=== PATIENT | male | born 1940 | race Caucasian/White ===

== ENCOUNTER 2017-11-21 12:28 | Observation (INO) | payer MEDICARE ==
[~2017-11-21] VITALS: Ht 180.3 cm; Wt 77.1 kg
--- NOTE | ~2017-11-21 | HEMODYNAMI ---
PATIENT:CHAD BALDWIN MEDICAL RECORD: [id number] : 36 [id number] ADMISSION DATE: 11/21/17 Generatedon:11/23/201710:38 Patient name: CHAD BALDWIN Patient #: [id number] SSN: DO B: 1940 Date of study: 11/23/2017 Page: Of Hemodynamic Procedure Report Patient Data Patient Demographics Procedure consent was obtained First Name: CHAD Gender: Male Last Name: DENNY : 1940 Middle Initial: ARVIN Age: 77 year(s) Patient #: [id number] Race: Additional ID: [id number] Contact details Address: [address] [address] State: [place] City: [place] Zip code: [address] Past Medical History History of disease Date Diagnosis Comments CHF Peripheral vascular disease Allergies Allergen Reaction Date Comments Reported Other allergy 03/12/2016 ACTO, LISINOPRIL, NIASPAN Other allergy 11/23/2017 Lisinopril, niacin Admission Admission Data Admission Date: 11/21/2017 Admission Time: 14:56 Room #: D.2116 Lab Results Lab Result Date: 11/23/2017 Lab Result Time: 0:00 CBC Name Units Result Min Max Hemoglobin g/dl 11.36 *-(----)-- 13.5 17.5 Procedure Procedure Types Cath Procedure Diagnostic Procedure C C w/Coronaries Procedure Description Procedure Date Procedure Date: 11/23/2017 Procedure Start Time: 10:28 Procedure End Time: 10:36 Procedure Staff Name Function Jos Costa MD Performing Physician Sandy Smith RT Monitor Jacquie Sky RT Scrub Mouna Dc RN Nurse Procedure Data Cath Procedure Fluoroscopy Diagnostic fluoroscopy Total fluoroscopy Time: 1 time: 1 min min Diagnostic fluoroscopy Total fluoroscopy dose: 434 dose: 434 mGy mGy Contrast Material Contrast Material Type Amount (ml) Isovue 300 51 Entry Location Entry Primary Successful Side Size Upsize Upsize Entry Closure Succes sful Closure Location (Fr) 1 (Fr) 2 (Fr) Remarks Device Remarks Femoral Right 5 Fr Exoseal artery Estimated blood loss: 5 ml Diagnostic catheters Device Type Used For End Catheter Placement MULTIPACK Pigtail 5 Fr LV Angiography catheter MULTIPACK JL 4.0 5Fr Left Coronary catheter Angiography MULTIPACK 3DRC 5Fr Right Coronary catheter Angiography Procedure Complications No complications Procedure Medications Medication Administration Route Dosage Oxygen NC 2 l/min Lidocaine 2% added to field 20 Heparin Flush Bag added to field 2 bags (1000units/500ml NS) 0.9% NaCl I.V. 100 ml/hr Versed I.V. 1 mg Fentanyl I.V. 50 mcg Hemodynamics Rest HGB: 11.36 (g/dl) Heart Rate: 81 (bpm) Pressure Samples Time Site Value (mmHg) Purpose Heart Use Rate(bpm) 10:30 LV 3/-38,-53 Snapshot 80 Snapshots Pre Cath Intra NCS Post Cath Vital Signs Time Heart Resp SPO2 etCO2 NIBP (mmHg) Rhythm Pain Sedation Rate (ipm) (%) (mmHg) Status Level (bpm) 10:15:56 95 24 100 0 137/76(107) NSR 0 (11) 10(A) , No pain 10:20:10 76 21 99 0 133/77(117) NSR 0 (11) 10(A) , No pain 10:24:26 69 18 99 0 132/71(104) NSR 0 (11) 10(A) , No pain 10:28:42 72 12 96 0 125/69(113) NSR 0 (11) 9(A) , No pain 10:32:50 71 15 96 0 116/72(103) NSR 0 (11) 10(A) , No pain Medications Time Medication Route Dose Verified Delivered Reason Notes Effec tiveness by by 10:18:34 Oxygen NC 2 Jos Buffie used for l/min Igor Dc RN procedure 10:18:41 Lidocaine 2% added 20ml Jos Buffie used for to vial Igor Dc manager sales training field 10:18:46 Heparin Flush added 2 Jos Buffie used for Bag to bags Igor Dc manager sales training (1000units/500ml field NS) 10:18:54 0.9% NaCl I.V. 100 Jos Buffie Per ml/hr Igor Dc RN physician 10:22:48 Versed I.V. 1 mg Jos Freire for Igor Dc RN sedation 10:22:53 Fentanyl I.V. 50 Jos Freire for [facility] Igor Dc RN sedation Procedure Log Time Note 10:00:06 Sandy Smith RT(R) sent for patient. Start room use. 10:06:18 Time tracking: Regular hours (M-F 7:00 - 5:00) 10:06:22 Plan of Care:Hemodynamics will remain stable., Cardiac rhythm will remain stable., Comfort level will be maintained., Respiratory function will remain adequate., Patient/ family verbilizes understanding of procedure., Procedure tolerated without complication., Recovers from procedure without complications.. 10:06:35 Patient received from Med II to CCL 2 Alert and oriented. Tansferred to table in Supine position. 10:07:40 Warm blankets applied, and joseph hugger turned on for patient comfort. 10:07:40 Correct patient and procedure confirmed by team. 10:07:43 Signed procedure consent form obtained from patient. 10:08:03 H&P Date Dictated: 11/21/2017 Within 30 days and on chart.. 10:08:05 Family in waiting room. 10:08:07 Patient NPO since Midnight. 10:08:39 Patient allergic to Other allergyLisinopril, niacin 10:08:44 Is the patient allergic to Iodine/contrast media? No. 10:08:48 Was the patient premedicated? Yes 10:08:51 Patient diabetic? Yes. 10:08:53 If diabetic: On Metformin? Yes 10:08:59 Snore? Yes 10:09:02 Sleep apnea? No 10:09:08 Airway obstruction? Yes SOB 10:09:48 Dentures? No ? 10:09:57 Patient pain scale 0/10 SOB. 10:10:04 IV patent on arrival in right forearm with 0.9% NaCl at O. 10:10:33 Lab Result : Hemoglobin 11.36 g/dl 10:10:40 Lab results completed and on chart. 10:10:44 Right groin area was prepped with chlora-prep and draped in sterile fashion 10:10:45 Alarms reviewed by R. N. 10:10:47 Sharps counted by scrub and verified by R.N. 10:10:48 Physician paged 10:14:47 ECG and BP/O2 sat monitors applied to patient. 10:14:48 Vital chart was started 10:14:49 Baseline sample Acquired. 10:15:07 Rhythm: atrial fibrillation 10:15:10 Full Disclosure recording started 10:15:17 Is patient on blood thinner?Yes 10:15:34 plavix 11/21 10:15:37 Previous problem with sedation/anesthesia? No ? 10:15:41 Deviated septum? No 10:15:42 Opens mouth fully? Yes 10:15:43 Sticks out tongue? Yes 10:15:47 Pre procedure: right dorsailis pedis pulse 1+ Palpable, but thready & weak; easily obliterated 10:15:48 Pre procedure: left dorsailis pedis pulse 1+ Palpable, but thready & weak; easily obliterated 10:18:34 Oxygen 2 l/min NC was administered by Mouna Dc RN; used for procedure; 10:18:41 Lidocaine 2% 20ml vial added to field was administered by Mouna Dc RN; used for procedure; 10:18:46 Heparin Flush Bag (1000units/500ml NS) 2 bags added to field was administered by Mouna Dc RN; used for procedure; 10:18:54 0.9% NaCl 100 ml/hr I.V. was administered by Mouna Dc RN; Per physician; 10:20:04 Physician arrived 10:20:04 --------ALL STOP TIME OUT------ 10:20:04 Final Timeout: patient, procedure, and site verified with staff and physician. All members of the team are in agreement. 10:20:07 Right groin site verified by team. 10:20:09 Physical assessment completed. ASA score P 2 - A patient with mild systemic disease as per Jos Costa MD. 10:20:12 Sedation plan: IV Moderate Sedation Medication:Versed, Fentanyl 10:22:48 Versed 1 mg I.V. was administered by Mouna Dc RN; for sedation; 10::53 Fentanyl 50 mcg I.V. was administered by Mouna Dc RN; for sedation; 10:28:53 Procedure started. 10:28:59 Local anesthetic to right femoral artery with Lidocaine 2% by Jos Costa MD.INITIAL ACCESS ONLY 10:29:38 A 5 Fr sheath was inserted into the Right Femoral artery 10:30:28 Use device set Femoral Dx 10:30:29 ACIST Syringe (38293) opened to sterile field. 10:30:30 Bag Decanter (2002S) opened to sterile field. 10:30:30 Medline Cath Pack ([id number]) opened to sterile field. 10:30:31 SHEATH 5FR [place] (QHG271) opened to sterile field. 10:30:33 DIAGNOSTIC WIRE .035 260cm J wire (872564) opened to sterile field. 10:30:34 ACIST Hand Control (48570) opened to sterile field. 10:30:34 ACIST Manifold (90871) opened to sterile field. 10:30:35 DIAGNOSTIC Multipack 5Fr catheter set ([id number]) opened to sterile field. 10:30:36 Tegaderm 4 x 4 (1626W) opened to sterile field. 10:30:43 A MULTIPACK Pigtail 5 Fr catheter was advanced over the wire and used for LV Angiography. 10:30:51 LV hemodynamics recorded. 10:30:52 LV gram done using MONTAÑO 10:30:55 Injector settings: Ml/sec: 5, Volume: 15, 10:31:00 EF : 30 % 10:31:10 Catheter removed. 10:31:14 A MULTIPACK JL 4.0 5Fr catheter was advanced over the wire and used for Left Coronary Angiography. 10:31:35 LCA angiography performed. 10:31:37 Injector settings: Ml/sec: 3, Volume: 6, 10:32:55 Catheter removed. 10:33:03 A MULTIPACK 3DRC 5Fr catheter was advanced over the wire and used for Right Coronary Angiography. 10:33:33 LV angiography performed. 10:33:36 Injector settings: Ml/sec: 3, Volume: 6, 10:33:58 Catheter removed. 10:34:22 EXOSEAL 5Fr (EX500) opened to sterile field. 10:34:29 Sheath removed intact; hemostasis achieved with Exoseal to the Right Femoral artery. 10:34:31 Procedure ended.(Physican Out) 10:34:41 Fluoroscopy time 01.00 minutes. 10:34:48 Fluoroscopy dose: 434 mGy 10:34:48 Flurop Dose total: 434 10:34:51 Contrast amount:Isovue 300 51ml. 10:34:52 Sharps counted by scrub and verified by R.N. 10:34:53 Insertion/operative site no bleeding no hematoma. 10:34:56 Post-op/insertion site Right Femoral artery dressed using a 4 x 4 and Tegaderm. 10:34:59 Post right femoral artery:stable 10:35:00 Post Procedure Pulses reassessed and unchanged 10:35:03 Post procedure rhythm: unchanged. 10:35:05 Estimated blood loss: 5 ml 10:35:06 Post procedure instruction explained to patient.Patient verbalizes understanding. 10:35:07 Patient needs reinforcement of post procedure teaching. 10:35:14 Procedure and supply charges have been captured, reviewed, submitted and are correct. 10:35:18 Procedure Complication : No complications 10:35:20 Vital chart was stopped 10:35:20 See physician's report for complete and final results. 10:35:26 Report given to Pre/Post Procedure Room. 10:36:00 Patient transfered to Pre/Post Procedure Room with Stretcher. 10:36:14 Procedure ended. 10:36:14 Full Disclosure recording stopped 10:36:19 End room use (Document Last) Device Usage Item Name Manufacture Quantity Catalog Hospital Part Current Minimal L ot# / Number Charge Number Stock Stock Serial# Code ACIST Acist 1 13297 577376 423907 647758 20 Syringe Medical (66184) Systems Inc Bag Microtek 1 981696 03681 800059 5 Decanter Medical Inc. () Medline Cardinal 1 [id number] 232111 80510 725302 5 Cath Pack Health ([id number]) SHEATH 5FR Terumo 1 RCV777 705888 584576 493309 40 [place] (PXW529) DIAGNOSTIC St Konstantin 1 443705 670630 155017 038449 30 WIRE .035 260cm J wire (506430) ACIST Hand Acist 1 54906 236287 272528 326345 5 Control Medical (97799) Systems Inc ACIST Acist 1 89218 640631 488339 932686 5 Manifold Medical (55008) Systems Inc DIAGNOSTIC Cardinal 1 [id number] 137295 33564 356676 30 Multipack Health 5Fr catheter set (ZF9914) Tegaderm 4 3M 1 1626W 288914 130362 825859 5 x 4 (1626W) MULTIPACK Cardinal 1 853480 5 Pigtail 5 Health Fr catheter MULTIPACK Cardinal 1 851085 5 JL 4.0 5Fr Health catheter MULTIPACK Cardinal 1 937943 5 3DRC 5Fr Health catheter EXOSEAL 5Fr Cardinal 1 EX500 850048 177656 914945 10 (EX500) Health Signature Audit [place] Stage Time Signature Unsigned Intra-Procedure 11/23/2017 Sandy Smith 10:38:07 AM RT(R) Signatures Monitor : Sandy Smith RT Signature : Date : Time : [facility] [address] [place] [address]
--- NOTE | ~2017-11-21 | DS ---
PATIENT:CHAD COOL :36 MEDICAL RECORD: [id number] DISCHARGE SUMMARY ADMISSION DATE: 11/21/17 DISCHARGE DATE: 11/23/17 DISCHARGE DIAGNOSES: 1. Congestive heart failure, chronic systolic dysfunction. 2. Cardiomyopathy. 3. Coronary artery disease. 4. Hypertension. 5. Hyperlipidemia. HOSPITAL COURSE: Mr. Cool presents with shortness of breath, dyspnea on exertion, and chest discomfort. He underwent cardiac catheterization revealing wide patency of his previously placed stents, no disease elsewise. Cardiomyopathy, ejection fraction 35%. He had the addition of Lasix to his medical regimen as well as IV Lasix while in the hospital. His heart failure symptomatology improved. He will follow up with [facility] in 2 weeks. TRANSINT:[id number] Voice Confirmation ID: [id number] DOCUMENT ID: [id number] JOSE MARIA STONE MD at 0956 CC: [id number] DICTATION DATE: 11/23/17 1044 SAND WORKER: 11/23/17 1325 DIS IN 11/23/17 [id number] [place] [address]
--- NOTE | ~2017-11-21 | OP ---
PATIENT NAME: CHAD BADLWIN MEDICAL RECORD: [id number] :36 [facility]ATION:[facility] ADMISSION DATE:11/21/17 SURGEON: JOSE MARIA STONE MD DATE OF OPERATION: 11/23/2017 PROCEDURES: 1. Left heart catheterization. 2. Selective coronary angiography. 3. Left ventriculogram. INDICATION: Shortness of breath, dyspnea on exertion, angina, and coronary artery disease. DESCRIPTION OF PROCEDURE: After informed consent was obtained and after a detailed description of risks, benefits as well as alternative therapies, the patient elected to proceed with angiogram and heart catheterization. The right femoral area was prepped and draped in normal sterile fashion. Right femoral artery was cannulated via modified Seldinger technique with placement of 5-Albanian sheath. All catheters exchanged through this sheath. FINDINGS: Left ventriculogram was performed in standard 30-degree [place]O view, reveals global hypokinesis throughout all segments. Overall ejection fraction in the 35% range. SELECTIVE CORONARY ANGIOGRAPHY: 1. Left main is with no significant angiographic disease. 2. Left anterior descending has previously placed stents, these are widely patent with no significant restenosis. No disease elsewise throughout the LAD or its branches. 3. Left circumflex has moderate irregularities, but no flow-limiting stenosis. 4. The right coronary artery has previously placed stents, these are widely patent with no significant restenosis. No disease elsewise. OVERALL IMPRESSION: Cardiomyopathy, but no new coronary artery disease. Center medical management and treatment of cardiomyopathy and congestive heart failure. TRANSINT:[id number] Voice Confirmation ID: [id number] DOCUMENT ID: [id number] JOSE MARIA STONE MD at 0956 CC: [id number] DICTATION DATE: 11/23/17 1043 LOT TECHNICIAN: 11/23/17 1238 DIS IN 11/23/17 [address] [place] [address]
--- NOTE | ~2017-11-21 | HP ---
PATIENT: CHAD COOL MEDICAL RECORD: [id number] ACCOUNT: [id number] [facility] ADMISSION DATE: 11/21/17 HISTORY AND PHYSICAL EXAMINATION DIAGNOSES: 1. Unstable angina. 2. Coronary artery disease. 3. Hypertension. 4. Hyperlipidemia. HISTORY OF PRESENT ILLNESS: Mr. Cool presents with increasing anginal chest discomfort as well as shortness of breath, dyspnea on exertion. These symptoms he has had in the past when he has had hemodynamically significant disease. Last cardiac stent was in June prior to . PHYSICAL EXAMINATION: GENERAL APPEARANCE: Well-nourished, well-developed, appears stated age. Level of distress, comfortable. PSYCHIATRIC: Mental status, alert, normal affect. Orientation, oriented to time, place and person. EYES: Lids and conjunctiva, noninjected. No discharge, no pallor. ENT: Lips, teeth, gums, normal dentition. Oropharynx, no cyanosis, no pallor. NECK: Carotid arteries, bilateral normal upstroke, no bruits, no thrills. JUGULAR VEINS: No jugular venous pressure or distention. CERVICAL LYMPH NODES: Nontender, nonenlarged. THYROID: Not enlarged. Nontender. No nodules. LUNGS: Respiratory effort, unlabored. CHEST: Normal curvature. No thoracic deformity. No chest wall tenderness. Percussion, resonant. Auscultation, clear. No wheezes, no rales, no rhonchi. CARDIOVASCULAR: Precordial exam, nondisplaced. No heaves or pericardial thrills. Rate and rhythm, regular. Heart sounds, normal S1, normal S2. No S3, no gallop, no rub. Systolic murmur, not heard. Diastolic murmur, not heard. EXTREMITIES: No cyanosis, no edema. Peripheral pulses, full and equal in all extremities, except as noted. No bruits appreciated. ABDOMEN: Soft, nondistended. Normal aorta. No bruit. Nontender. No masses. Liver, nontender, no hepatomegaly. Spleen, nontender, no splenomegaly. MUSCULOSKELETAL: No joint tenderness. No joint swelling. No erythema. NEUROLOGICAL: Normal gait, normal strength, normal tone. SKIN: Warm and dry. REVIEW OF SYSTEMS: The patient reports easy bruising but reports no swollen glands. The patient reports no fever, no night sweats, no significant weight gain, no significant weight loss. No significant exercise tolerance. The patient reports no dry eyes, no irritation, no vision change. Patient reports no difficulty hearing and no ear pain. Patient reports no frequent nose bleeds or nose and sinus problems. Patient reports on arm pain on exertion. No shortness of breath while lying down. No history of heart murmur. Patient reports no cough, no wheezing or coughing up blood. Patient reports no abdominal pain, no vomiting. Normal appetite. No diarrhea and not vomiting blood. No nausea and no constipation. Patient reports no incontinence. No difficulty urinating. No hematuria. No increased frequency. Patient reports no muscle aches. No weakness, no arthralgias, no back pain. No swelling of the extremities. Patient reports no abnormal mole, no jaundice, no rashes. Reports no loss of consciousness. No weakness and no numbness. No seizures, dizziness, HISTORY AND PHYSICAL [id number] COOL,CHAD ARVIN or headaches. The patient reports no depression, no sleep disturbance, feeling safe in a relationship and no alcohol abuse. Patient reports on fatigue. Reports no runny nose or sinus pressure. No itching, no hives, and no frequent sneezing. OVERALL IMPRESSION: Unstable anginal symptomatology, most likely has recurrent hemodynamically significant coronary artery disease. We will proceed with coronary angiography. Further care depends upon findings of the angiography. TRANSINT:[id number] Voice Confirmation ID: [id number] DOCUMENT ID: [id number] JOSE MARIA STONE MD at 0956 CC: [id number] DICTATION DATE: 11/22/17 142 RIG MANAGER: 11/22/17 1501 DIS IN 11/23/17 [address] [place] [address]
[~2017-11-21 12:28] MED LIST: ALDACTONE25 MG PO; BAYER CHEWABLE81 MG PO; CITRACAL + D E1 EACH PO; COZAAR25 MG PO; FERROUS SULFAT325 MG PO; GLUCOPHAGE1000 MG PO; JANUVIA100 MG PO; LIPITOR80 MG PO; LOPRESSOR25 MG PO; MEGA MEN; NEXIUM40 MG PO; PLAVIX75 MG PO; [UNRECOGNIZED DRUG - OTHER]
[2017-11-21 13:39] LABS: BASOPHILS 0.2 % (0-2); HEMATOCRIT 33.2 % (42.0-54.0); HEMOGLOBIN 11.3 g/dL (13.5-17.5); IMMATURE GRANULOCYTES 0.4 % (0-5); LYMPHOCYTES 16.2 % (15-50); MCH 31.6 pg (26.0-34.0); MCV 92.7 fL (80.0-100.0); MEAN PLATELET VOLUME 11.2 fL (7.4-10.4); MONOCYTES 6.8 % (2-11); NEUTROPHILS 75.4 % (40-80); PLATELET COUNT 209 10x3/uL (130-400); RBC 3.58 10x6/uL (4.20-6.10); RDW 13.4 % (11.5-14.5); WBC 8.2 10x3/uL (4.8-10.8)
[2017-11-21 13:55] LABS: ALKALINE PHOSPHATASE 50 U/L (46-116); ALT (SGPT) 18 U/L (10-68); BILIRUBIN - TOTAL 0.91 mg/dL (0.2-1.3); CALC OSMOLALITY 266 mosm/kg (275-300); CALCIUM 8.6 mg/dL (8.5-10.1); CARBON DIOXIDE 22.3 mmol/L (21.0-32.0); CHLORIDE - SERUM 96 mmol/L (98-107); CREATININE - SERUM 1.1 mg/dL (0.6-1.3); GLUCOSE 109 mg/dL (74-106); POTASSIUM - SERUM 5.2 mmol/L (3.5-5.1); PROTEIN - SERUM 7.1 g/dL (6.4-8.2); SODIUM 131 mmol/L (136-145); UREA NITROGEN 20 mg/dL (7-18); eGFR NON AFRICAN AMERICAN 68 mL/min (90-120)
[2017-11-21 14:10] LABS: CREATINE KINASE 440 UL (21-232); PRO BNP 15328 pg/mL (0-450)
[2017-11-21 14:13] LABS: CKMB 1.4 U/L (0.0-3.6)
[2017-11-21] MEDS ORDERED: LIPITOR20 MG PO (15:50)
[2017-11-21] MEDS ORDERED: FERROUS SULFAT325 MG PO (15:54)
[2017-11-21 15:55] VITALS: BP 126/57; BMI 24.1
[2017-11-21 19:00] VITALS: BP 116/69
[2017-11-22] VITALS: BP 112/61
[2017-11-22 04:00] VITALS: BP 122/64
[2017-11-22 09:53] VITALS: BP 140/60
[2017-11-22 12:49] VITALS: BP 123/74
[2017-11-22 16:30] VITALS: BP 125/82
[2017-11-22 20:00] VITALS: BP 138/72
[2017-11-23] VITALS: BP 115/70
[2017-11-23 04:00] VITALS: BP 120/52
[2017-11-23 08:30] VITALS: BP 128/71
[2017-11-23] MEDS ORDERED: AUGMENTIN 500-11 TA1 PO (11:37)
[2017-11-23] MEDS ORDERED: LASIX40 MG PO (11:42)
[2017-11-23 13:03] VITALS: Ht 180.3 cm; Wt 77.1 kg
== END 2017-11-23 13:10 | disposition home or self-care (01) ==
LOC: D.ER 12:28 → D.M2 14:56 → D.EDHOLD 14:56 → OBSVTIME 14:56 → D.M2 15:03 → D.CLR 11-23 13:06
PROVIDERS: Family Medicine
DX: I42.9 Cardiomyopathy, unspecified (principal); I11.0 Hypertensive heart disease with heart failure; I50.22 Chronic systolic (congestive) heart failure; I25.10 Atherosclerotic heart disease of native coronary artery without angina pectoris; E78.5 Hyperlipidemia, unspecified

== ENCOUNTER 2017-12-17 14:42 | Inpatient (IN) | payer MEDICARE ==
[~2017-12-17] VITALS: Ht 180.3 cm; Wt 78.0 kg
--- NOTE | ~2017-12-17 | CN ---
PATIENT NAME:CHAD BALDWIN MEDICAL RECORD: [id number] : 36 LOCATION:D. D.2111 ADMIT DATE: 12/18/17 ACCOUNT: [id number] CONSULTING PHYSICIAN: JOSE MARIA STONE MD REFERRING PHYSICIAN: RADHA OLSON MD DATE OF CONSULTATION: 12/18/2017 Cardiology Consultation ADMITTING DIAGNOSES: 1. Congestive heart failure, chronic systolic dysfunction. 2. Cardiomyopathy. 3. Coronary artery disease. 4. Hypertension. 5. Hyperlipidemia. 6. Non-insulin dependent diabetes. HISTORY OF PRESENT ILLNESS: Mr. Baldwin presents with shortness of breath, dyspnea on exertion, and fluid retention. He even has home health, which was given to him IV Lasix. Despite this, he had continued to have fluid retention and increasing weight. He has been brought in here. He has had some diuresis here. He has a cardiomyopathy and he had cardiac catheterization last month revealing patency of all the previously placed stents. Ejection fraction in the 35% range. He is not having any anginal symptomatology. His troponin is normal. His EKG is with no changes. PHYSICAL EXAMINATION: GENERAL APPEARANCE: Well-nourished, well-developed, appears stated age. Level of distress, comfortable. PSYCHIATRIC: Mental status, alert, normal affect. Orientation, oriented to time, place and person. EYES: Lids and conjunctiva, noninjected. No discharge, no pallor. ENT: Lips, teeth, gums, normal dentition. Oropharynx, no cyanosis, no pallor. NECK: Carotid arteries, bilateral normal upstroke, no bruits, no thrills. JUGULAR VEINS: No jugular venous pressure or distention. CERVICAL LYMPH NODES: Nontender, nonenlarged. THYROID: Not enlarged. Nontender. No nodules. LUNGS: Bibasilar crackles. CHEST: Normal curvature. No thoracic deformity. No chest wall tenderness. Percussion, resonant. Auscultation, clear. No wheezes, no rales, no rhonchi. CARDIOVASCULAR: Precordial exam, nondisplaced. No heaves or pericardial thrills. Rate and rhythm, regular. Heart sounds, normal S1, normal S2. No S3, no gallop, no rub. Systolic murmur, not heard. Diastolic murmur, not heard. EXTREMITIES: No cyanosis. Peripheral pulses, full and equal in all extremities, except as noted. No bruits appreciated. He does have +2 lower extremity edema. ABDOMEN: Soft, nondistended. Normal aorta. No bruit. Nontender. No masses. Liver, nontender, no hepatomegaly. Spleen, nontender, no splenomegaly. MUSCULOSKELETAL: No joint tenderness. No joint swelling. No erythema. NEUROLOGICAL: Normal gait, normal strength, normal tone. SKIN: Warm and dry. OVERALL IMPRESSION: Congestive heart failure, chronic systolic dysfunction. At this time, continue Lasix that you have him on. We will add dobutamine continuous drip for 24-48 hours, hopefully this will assist in the diuresis. No CONSULT REPORT [id number] CHAD BALDWIN other cardiac workup treatment is necessary at this time as he has a known cardiomyopathy, no new coronary artery disease. As soon as he is back to baseline from the standpoint of heart failure, the dobutamine drip can be discontinued. He can go home back on his oral Lasix. TRANSINT:[id number] Voice Confirmation ID: [id number] DOCUMENT ID: [id number] JOSE MARIA STONE MD at 1849 CC: [id number] DICTATION DATE: 12/18/17 1336 CHUCKING MACHINE SET UP OPERATOR: 12/18/17 1711 DIS IN 12/22/17 [facility] [address] [place] [address]
[~2017-12-17 14:42] MED LIST changes: +AUGMENTIN 500-11 TA1 PO; +LASIX40 MG PO; +LIPITOR20 MG PO
[2017-12-17 15:28] LABS: BASOPHILS 0.2 % (0-2); EOSINOPHILS 0.6 % (0-7); HEMATOCRIT 33.3 % (42.0-54.0); HEMOGLOBIN 11.8 g/dL (13.5-17.5); IMMATURE GRANULOCYTES 0.6 % (0-5); LYMPHOCYTES 12.7 % (15-50); MCH 31.9 pg (26.0-34.0); MCHC 35.4 g/dL (31.0-37.0); MEAN PLATELET VOLUME 10.9 fL (7.4-10.4); MONOCYTES 9.3 % (2-11); NEUTROPHILS 76.6 % (40-80); PLATELET COUNT 191 10x3/uL (130-400); RDW 13.2 % (11.5-14.5); WBC 10.7 10x3/uL (4.8-10.8)
[2017-12-17 15:57] LABS: ALBUMIN 4.1 g/dL (3.4-5.0); ALKALINE PHOSPHATASE 65 U/L (46-116); ALT (SGPT) 1079 U/L (10-68); BILIRUBIN - TOTAL 1.57 mg/dL (0.2-1.3); CALC OSMOLALITY 251 mosm/kg (275-300); CALCIUM 8.4 mg/dL (8.5-10.1); CARBON DIOXIDE 23.7 mmol/L (21.0-32.0); CHLORIDE - SERUM 86 mmol/L (98-107); CREATININE - SERUM 1.4 mg/dL (0.6-1.3); GLUCOSE 129 mg/dL (74-106); POTASSIUM - SERUM 4.6 mmol/L (3.5-5.1); PROTEIN - SERUM 7.6 g/dL (6.4-8.2); SODIUM 121 mmol/L (136-145); UREA NITROGEN 28 mg/dL (7-18); eGFR NON AFRICAN AMERICAN 52 mL/min (90-120)
[2017-12-17 16:05] LABS: CKMB 1.7 U/L (0.0-3.6); PRO BNP 23564 pg/mL (0-450)
[2017-12-17 16:10] LABS: TROPONIN-I < 0.017 ng/mL (0.000-0.060)
[2017-12-17] MEDS ORDERED: ASPIRIN325 MG PO (19:53)
[2017-12-17 21:23] VITALS: BP 128/79
[2017-12-18] VITALS (7 sets, daily range): BP systolic 109–143; BP diastolic 58–86; Ht 180.3 cm; Wt 78.0 kg
[2017-12-18 05:17] LABS: BASOPHILS 0.2 % (0-2); EOSINOPHILS 0.2 % (0-7); HEMOGLOBIN 10.7 g/dL (13.5-17.5); IMMATURE GRANULOCYTES 0.6 % (0-5); LYMPHOCYTES 12.8 % (15-50); MCH 30.8 pg (26.0-34.0); MCHC 34.5 g/dL (31.0-37.0); MCV 89.3 fL (80.0-100.0); MEAN PLATELET VOLUME 11.1 fL (7.4-10.4); MONOCYTES 10.7 % (2-11); NEUTROPHILS 75.5 % (40-80); RBC 3.47 10x6/uL (4.20-6.10); WBC 8.2 10x3/uL (4.8-10.8)
[2017-12-18 05:23] LABS: PLATELET COUNT 143 10x3/uL (130-400)
[2017-12-18 05:26] LABS: ANION GAP 19.3 mmol/L (8-16); CALCIUM 7.7 mg/dL (8.5-10.1); CARBON DIOXIDE 22.6 mmol/L (21.0-32.0); CREATININE - SERUM 1.4 mg/dL (0.6-1.3)
[2017-12-18 05:32] LABS: POTASSIUM - SERUM 3.9 mmol/L (3.5-5.1)
[2017-12-18 14:17] LABS: % SATURATION 40 % (15-55); IRON 94 ug/dl (35-150); TOTAL IRON BIND CAPACITY 234 ug/dl (260-445); UNSAT IRON BIND CAPACITY 140 ug/dl (150-375)
[2017-12-19 02:57] VITALS: BP 74/67
[2017-12-19 03:27] LABS: BASOPHILS 0.2 % (0-2); EOSINOPHILS 0.3 % (0-7); HEMATOCRIT 28.7 % (42.0-54.0); HEMOGLOBIN 10.2 g/dL (13.5-17.5); IMMATURE GRANULOCYTES 0.6 % (0-5); LYMPHOCYTES 8.8 % (15-50); MCHC 35.5 g/dL (31.0-37.0); MCV 87.2 fL (80.0-100.0); MEAN PLATELET VOLUME 10.8 fL (7.4-10.4); MONOCYTES 6.2 % (2-11); NEUTROPHILS 83.9 % (40-80); PLATELET COUNT 139 10x3/uL (130-400); RBC 3.29 10x6/uL (4.20-6.10); RDW 12.9 % (11.5-14.5); WBC 8.7 10x3/uL (4.8-10.8)
[2017-12-19 03:29] LABS: CALCIUM 7.8 mg/dL (8.5-10.1); CARBON DIOXIDE 23.7 mmol/L (21.0-32.0); CREATININE - SERUM 1.1 mg/dL (0.6-1.3)
[2017-12-19 03:32] LABS: ANION GAP 16.4 mmol/L (8-16); POTASSIUM - SERUM 3.1 mmol/L (3.5-5.1)
[2017-12-19 05:58] VITALS: BP 119/67
[2017-12-19 06:47] LABS: ALBUMIN 3.7 g/dL (3.4-5.0); BILIRUBIN - DIRECT 0.71 mg/dL (0.00-0.30); BILIRUBIN - INDIRECT 0.8 mg/dL (0.00-1.00); BILIRUBIN - TOTAL 1.51 mg/dL (0.2-1.3); PROTEIN - SERUM 6.2 g/dL (6.4-8.2)
[2017-12-19 08:17] LABS: FOLATE (FOLIC ACID) - SERUM >20.0 ng/mL (>3.0)
[2017-12-19 08:43] VITALS: BP 98/74
[2017-12-19 11:58] VITALS: BP 119/65
[2017-12-19 16:44] VITALS: BP 124/67
[2017-12-19 21:57] VITALS: BP 149/60
[2017-12-20 06:17] VITALS: BP 118/50
[2017-12-20 06:32] LABS: BASOPHILS 0.1 % (0-2); HEMATOCRIT 29.4 % (42.0-54.0); HEMOGLOBIN 10.4 g/dL (13.5-17.5); IMMATURE GRANULOCYTES 0.6 % (0-5); LYMPHOCYTES 10.9 % (15-50); MCH 31.1 pg (26.0-34.0); MCHC 35.4 g/dL (31.0-37.0); MEAN PLATELET VOLUME 11.3 fL (7.4-10.4); MONOCYTES 8.4 % (2-11); PLATELET COUNT 159 10x3/uL (130-400); RBC 3.34 10x6/uL (4.20-6.10); WBC 8.4 10x3/uL (4.8-10.8)
[2017-12-20 06:40] LABS: CALCIUM 7.5 mg/dL (8.5-10.1); CARBON DIOXIDE 27.3 mmol/L (21.0-32.0); CREATININE - SERUM 0.9 mg/dL (0.6-1.3); GLUCOSE 98 mg/dL (74-106); eGFR NON AFRICAN AMERICAN 86 mL/min (90-120)
[2017-12-20 06:43] LABS: CALC OSMOLALITY 238 mosm/kg (275-300); POTASSIUM - SERUM 3.7 mmol/L (3.5-5.1); UREA NITROGEN 16 mg/dL (7-18)
[2017-12-20 06:44] LABS: CHLORIDE - SERUM 82 mmol/L (98-107); SODIUM 118 mmol/L (136-145)
[2017-12-20 08:18] VITALS: BP 88/67
[2017-12-20 12:28] VITALS: BP 120/70
[2017-12-20 16:30] VITALS: BP 124/55
[2017-12-20 21:01] VITALS: BP 112/53
[2017-12-21 05:26] LABS: BASOPHILS 0.3 % (0-2); EOSINOPHILS 1.1 % (0-7); HEMATOCRIT 29.6 % (42.0-54.0); HEMOGLOBIN 10.5 g/dL (13.5-17.5); IMMATURE GRANULOCYTES 0.4 % (0-5); LYMPHOCYTES 10.1 % (15-50); MCH 31.3 pg (26.0-34.0); MCHC 35.5 g/dL (31.0-37.0); MCV 88.4 fL (80.0-100.0); MEAN PLATELET VOLUME 10.5 fL (7.4-10.4); MONOCYTES 10.1 % (2-11); PLATELET COUNT 160 10x3/uL (130-400); RBC 3.35 10x6/uL (4.20-6.10); RDW 13.3 % (11.5-14.5); WBC 7.3 10x3/uL (4.8-10.8)
[2017-12-21 05:50] LABS: CALC OSMOLALITY 250 mosm/kg (275-300); CALCIUM 7.9 mg/dL (8.5-10.1); GLUCOSE 109 mg/dL (74-106); POTASSIUM - SERUM 3.4 mmol/L (3.5-5.1); SODIUM 124 mmol/L (136-145); UREA NITROGEN 12 mg/dL (7-18); eGFR NON AFRICAN AMERICAN 76 mL/min (90-120)
[2017-12-21 05:57] LABS: CHLORIDE - SERUM 85 mmol/L (98-107)
[2017-12-21 06:33] VITALS: BP 81/68
[2017-12-21 09:13] VITALS: BP 115/62
[2017-12-21 12:46] VITALS: BP 108/75
[2017-12-21 14:19] LABS: MAGNESIUM - SERUM 2.3 mg/dL (1.8-2.4); POTASSIUM - SERUM 3.6 mmol/L (3.5-5.1)
[2017-12-21 16:43] VITALS: BP 118/64
[2017-12-21 20:00] VITALS: BP 121/70
[2017-12-22 06:19] LABS: BASOPHILS 0.4 % (0-2); EOSINOPHILS 4.1 % (0-7); HEMATOCRIT 30.5 % (42.0-54.0); HEMOGLOBIN 10.5 g/dL (13.5-17.5); IMMATURE GRANULOCYTES 0.6 % (0-5); LYMPHOCYTES 16.8 % (15-50); MCH 30.8 pg (26.0-34.0); MCHC 34.4 g/dL (31.0-37.0); MCV 89.4 fL (80.0-100.0); MEAN PLATELET VOLUME 10.8 fL (7.4-10.4); MONOCYTES 12.2 % (2-11); NEUTROPHILS 65.9 % (40-80); PLATELET COUNT 169 10x3/uL (130-400); RBC 3.41 10x6/uL (4.20-6.10); RDW 13.7 % (11.5-14.5); WBC 7.1 10x3/uL (4.8-10.8)
[2017-12-22 06:38] LABS: ANION GAP 14.4 mmol/L (8-16); CALCIUM 8.3 mg/dL (8.5-10.1); CARBON DIOXIDE 26.6 mmol/L (21.0-32.0); CREATININE - SERUM 1.1 mg/dL (0.6-1.3)
[2017-12-22 08:33] VITALS: BP 123/60
[2017-12-22 11:35] VITALS: BP 115/72
== END 2017-12-22 11:45 | disposition home health service (06) | DRG 292 ==
LOC: D.ER 14:42 → D.M2 17:13 → D.EDHOLD 17:13 → OBSVTIME 17:13 → D.EDHOLD 17:13 → D.M2 17:36
PROVIDERS: Emergency Medicine; Family Medicine; Internal Medicine Nephrology
DX: I11.0 Hypertensive heart disease with heart failure (principal); N17.9 Acute kidney failure, unspecified; E87.1 Hypo-osmolality and hyponatremia; I50.23 Acute on chronic systolic (congestive) heart failure; I42.9 Cardiomyopathy, unspecified; I25.10 Atherosclerotic heart disease of native coronary artery without angina pectoris; Z95.5 Presence of coronary angioplasty implant and graft; E78.5 Hyperlipidemia, unspecified; E11.51 Type 2 diabetes mellitus with diabetic peripheral angiopathy without gangrene; K76.1 Chronic passive congestion of liver; D64.9 Anemia, unspecified

== ENCOUNTER → 2018-02-11 17:27 | Outpatient (CLI) | payer MEDICARE ==
[2017-12-18 14:01] VITALS: BMI 23.9
[~2018-02-11 17:27] MED LIST changes: +ASPIRIN325 MG PO; +FUROSEMIDE40 MG PO; +K-DUR20 MEQ PO; +SOMA350 MG PO
== END | disposition home or self-care (01) ==
LOC: D.LABREF 17:27
PROVIDERS: Internal Medicine Interventional Cardiology
DX: E78.5 Hyperlipidemia, unspecified (principal); I25.10 Atherosclerotic heart disease of native coronary artery without angina pectoris

== ENCOUNTER 2018-02-24 09:49 | Observation (INO) | payer MEDICARE ==
[~2018-02-24] VITALS: Ht 180.3 cm; Wt 73.4 kg
--- NOTE | ~2018-02-24 | DS ---
PATIENT:CHAD COOL :36 MEDICAL RECORD: [id number] DISCHARGE SUMMARY ADMISSION DATE: 02/24/18 DISCHARGE DATE: 02/26/18 DISCHARGE DIAGNOSES: 1. Congestive heart failure, chronic systolic dysfunction. 2. Cardiomyopathy. 3. Coronary artery disease. 4. Hypertension. 5. Hyperlipidemia. HOSPITAL COURSE: Mr. Cool presents with fluid overload, congestive heart failure symptomatology, underwent therapy with dobutamine as well as Bumex, had an excellent diuresis with resolution of all his symptomatology. Discharged home with no change in the medications as he is already on multiple diuretics. He will follow up with [facility] in 1 month. TRANSINT:[id number] Voice Confirmation ID: [id number] DOCUMENT ID: [id number] JOSE MARIA STONE MD at 1325 CC: [id number] DICTATION DATE: 02/26/18 1137 CLUB STEWARD: 02/26/18 1219 DIS IN 02/26/18 [id number] [place] [address]
[~2018-02-24 09:49] MED LIST changes: -FUROSEMIDE40 MG PO; -K-DUR20 MEQ PO; -SOMA350 MG PO
[2018-02-24] MEDS ORDERED: LIPITOR20 MG PO (10:18)
[2018-02-24] MEDS ORDERED: FERROUS SULFAT325 MG PO (10:19)
[2018-02-24] MEDS ORDERED: LOPRESSOR25 MG PO (10:20)
[2018-02-24 10:32] VITALS: BP 123/79; BMI 23.4
[2018-02-24 11:16] VITALS: BP 123/79
[2018-02-24 11:35] LABS: ANION GAP 12.6 mmol/L (8-16); CALCIUM 9.1 mg/dL (8.5-10.1); CARBON DIOXIDE 30.9 mmol/L (21.0-32.0); CREATININE - SERUM 1.1 mg/dL (0.6-1.3); POTASSIUM - SERUM 3.5 mmol/L (3.5-5.1)
[2018-02-24 11:51] LABS: BASOPHILS 0.3 % (0-2); EOSINOPHILS 1.8 % (0-7); HEMATOCRIT 33.7 % (42.0-54.0); HEMOGLOBIN 11.4 g/dL (13.5-17.5); IMMATURE GRANULOCYTES 0.2 % (0-5); LYMPHOCYTES 16.5 % (15-50); MCH 31.7 pg (26.0-34.0); MCHC 33.8 g/dL (31.0-37.0); MCV 93.6 fL (80.0-100.0); MEAN PLATELET VOLUME 11.2 fL (7.4-10.4); MONOCYTES 7.5 % (2-11); NEUTROPHILS 73.7 % (40-80); PLATELET COUNT 143 10x3/uL (130-400); RDW 17.6 % (11.5-14.5); WBC 6.3 10x3/uL (4.8-10.8)
[2018-02-24] MEDS ORDERED: K-DUR20 MEQ PO (13:39)
[2018-02-24 15:53] VITALS: BP 109/68
[2018-02-24 20:56] VITALS: BP 127/59
[2018-02-25 00:46] VITALS: BP 104/46
[2018-02-25 05:03] VITALS: BP 121/69
[2018-02-25 12:18] VITALS: Ht 180.3 cm; Wt 73.4 kg
[2018-02-25 21:35] VITALS: BP 112/61
[2018-02-26 01:10] VITALS: BP 108/66
[2018-02-26 05:05] VITALS: BP 114/64
[2018-02-26 08:16] VITALS: BP 126/76
[2018-02-26 11:14] VITALS: BP 108/58
== END 2018-02-26 14:20 | disposition home or self-care (01) ==
LOC: D.M2 09:49 → OBSVTIME 09:52 → D.M2 02-26 14:20
PROVIDERS: Internal Medicine Interventional Cardiology
DX: I11.0 Hypertensive heart disease with heart failure (principal); I50.22 Chronic systolic (congestive) heart failure; E11.9 Type 2 diabetes mellitus without complications; I25.10 Atherosclerotic heart disease of native coronary artery without angina pectoris; Z95.5 Presence of coronary angioplasty implant and graft; E78.5 Hyperlipidemia, unspecified; I42.9 Cardiomyopathy, unspecified

== ENCOUNTER 2018-03-03 08:27 | Outpatient (CLI) | payer MEDICARE ==
[~2018-03-03] VITALS: Ht 180.3 cm; Wt 74.5 kg
[~2018-03-03 08:27] MED LIST changes: +K-DUR20 MEQ PO
[2018-03-03] MEDS ORDERED: SOMA350 MG PO (08:51)
[2018-03-03] MEDS ORDERED: FUROSEMIDE40 MG PO (08:52)
[2018-03-03] MEDS ORDERED: ALDACTONE25 MG PO (08:53)
[2018-03-03 09:04] VITALS: BP 119/62; Ht 180.3 cm; Wt 74.5 kg
[2018-03-03 09:13] LABS: BASOPHILS 0.3 % (0-2); HEMATOCRIT 36.2 % (42.0-54.0); HEMOGLOBIN 12.4 g/dL (13.5-17.5); IMMATURE GRANULOCYTES 0.3 % (0-5); LYMPHOCYTES 16.1 % (15-50); MCHC 34.3 g/dL (31.0-37.0); MCV 93.3 fL (80.0-100.0); MEAN PLATELET VOLUME 11.8 fL (7.4-10.4); MONOCYTES 12.2 % (2-11); NEUTROPHILS 70.1 % (40-80); PLATELET COUNT 154 10x3/uL (130-400); RBC 3.88 10x6/uL (4.20-6.10); RDW 17.2 % (11.5-14.5); WBC 6.9 10x3/uL (4.8-10.8)
[2018-03-03 09:35] LABS: ANION GAP 12.6 mmol/L (8-16); CALCIUM 8.8 mg/dL (8.5-10.1); CARBON DIOXIDE 27.9 mmol/L (21.0-32.0); CREATININE - SERUM 1.5 mg/dL (0.6-1.3); POTASSIUM - SERUM 4.5 mmol/L (3.5-5.1)
== END 2018-03-03 15:30 | disposition home or self-care (01) ==
LOC: D.CATH 08:27
PROVIDERS: Internal Medicine Interventional Cardiology
DX: I50.9 Heart failure, unspecified (principal)

== ENCOUNTER 2019-03-15 11:02 | Observation (INO) | payer MEDICARE ==
[~2019-03-15] VITALS: Ht 180.3 cm; Wt 72.3 kg
--- NOTE | ~2019-03-15 | HEMODYNAMI ---
PATIENT:CHAD BALDWIN MEDICAL RECORD: [id number] : 36 LOCATION:[facility] ADMISSION DATE: 03/15/19 Generatedon:03/15/201916:15 Patient name: CHAD BALDWIN Patient #: [id number] SSN: DO B: 1940 Date of study: 03/15/2019 Page: Of Hemodynamic Procedure Report Patient Data Patient Demographics Procedure consent was obtained First Name: CHAD Gender: Male Last Name: DENNY : 1940 [facility] Initial: ARVIN Age: 78 year(s) Patient #: [id number] Race: Additional ID: [id number] Contact details Address: [place] [address] State: [place] City: [place] Zip code: [address] Past Medical History History of disease Date Diagnosis Comments CHF Peripheral vascular disease Allergies Allergen Reaction Date Comments Reported Other allergy 03/12/2016 ACTO, LISINOPRIL, NIASPAN Other allergy 11/23/2017 Lisinopril, niacin Admission Admission Data Admission Date: 03/15/2019 Admission Time: 11:02 Procedure Procedure Types Cath Procedure Diagnostic Procedure PPM/ICD PPM Dual Implant Sedation Charges Moderate Sedation up to 30 minutes Procedure Description Procedure Date Procedure Date: 03/15/2019 Procedure Start Time: 15:49 Procedure End Time: 16:14 Procedure Staff Name Function Cornelio Miller MD Performing Physician Robert Boyce MD Assisting physician Ángel Bradley RT Monitor Glenis Call RT Monitor Magda Nash RN Nurse Sandy Smith RT Scrub Procedure Data Cath Procedure Fluoroscopy Diagnostic fluoroscopy Total fluoroscopy Time: 1.4 time: 1.4 min min Diagnostic fluoroscopy Total fluoroscopy dose: dose: 47.12 mGy 47.12 mGy Estimated blood loss: 5 ml Procedure Complications No complications Procedure Medications Medication Administration Route Dosage 0.9% NaCl I.V. 100 ml/hr Oxygen etCO2 Nasal cannula 2 l/min Ancef (1Gm/50ml NS) I.V.P.B 1 g Ancef Irrigation Topical 1 g (1gm/500ml NS) Lidocaine 1% added to field 20 Versed I.V. 2 mg Fentanyl I.V. 50 mcg Versed I.V. 1 mg Fentanyl I.V. 50 mcg Hemodynamics Rest Pre Cath Intra NCS Post Cath Vital Signs Time Heart Resp SPO2 etCO2 NIBP (mmHg) Rhythm Pain Sedation Rate (ipm) (%) (mmHg) Status Level (bpm) 15:35:09 69 19 98 34.3 Measuring 1 0 (11) 10(A) degree , No AV pain Block 15:38:36 87 14 98 37.3 167/82(117) 1 0 (11) 10(A) degree , No AV pain Block 15:42:28 74 10 97 39.5 130/78(99) 1 0 (11) 10(A) degree , No AV pain Block 15:47:27 77 15 98 22.4 116/67(91) 1 0 (11) 10(A) degree , No AV pain Block 15:51:37 29 14 98 23.8 102/63(81) 1 0 (11) 10(A) degree , No AV pain Block 15:56:36 71 10 98 16.4 Measuring 1 0 (11) 10(A) degree , No AV pain Block 15:57:06 79 16 97 35.1 116/78(93) 1 0 (11) 10(A) degree , No AV pain Block 16:01:18 78 18 98 20.1 115/61(81) Paced 0 (11) 9(A) , No pain 16:06:03 21 16 97 29.8 138/61(102) Paced 0 (11) 9(A) , No pain 16:11:41 18 16 97 37.3 135/78(102) Paced 0 (11) 10(A) , No pain Medications Time Medication Route Dose Verified Delivered Reason Notes Effecti veness by by 15:40:08 Oxygen etCO2 2 Cornelio Magda used for O2 off Nasal l/min Angela Saad procedure when cannula MD ALONSO Bovi in use 15:40:08 0.9% NaCl I.V. 100 Cornelio Man used for ml/hr Angela Saad procedure MD ALONSO 15:40:25 Ancef I.V.P.B 1 g Cornelio Man used for (1Gm/50ml Angela Saad procedure NS) MD RN 15:40:34 Ancef Topical 1 g Robert Jones used for Irrigation Klever Boyce MD procedure (1gm/500ml NS) 15:40:45 Lidocaine added 20ml Robert Jones for local 1% to vial Klever Boyce MD anesthetic field x 2 15:46:35 Versed I.V. 2 mg Cornelio Magda for AngelaKvng Nash sedation RN 15:46:49 Fentanyl I.V. 50 [facility] 16:00:43 Versed I.V. 1 mg Cornelio Magda for Eden Saad sedation RN 16:00:49 Fentanyl I.V. 50 Cornelio Magda for [facility] Saad sedation technical sales associate Log Time Note 15:10:44 Medtronic account maintenance representative Leroy Rendon present for procedure. 15:10:58 Sandy Smith RT(R) sent for patient. Start room use. 15:16:59 Time tracking: Regular hours (M-F 7:00 - 5:00) 15:17:03 Plan of Care:Hemodynamics will remain stable., Cardiac rhythm will remain stable., Comfort level will be maintained., Respiratory function will remain adequate., Patient/ family verbilizes understanding of procedure., Procedure tolerated without complication., Recovers from procedure without complications.. 15:20:46 Use device set KLEVER PPM 15:20:51 Cautery Tip Phlebotomist Medical Lab Assistant opened to sterile field. 15:20:52 Cautery Pushbutton Pencil opened to sterile field. 15:20:53 Mepilex Dressing (043659) opened to sterile field. 15:21:01 Immobilizer Large opened to sterile field. 15:21:09 2-0 Ticron Multipack ([id number]) opened to sterile field. 15:21:10 3-0 Vicryl Single Pack [id number] opened to sterile field. 15:21:10 5-0 Monocryl PS2 [id number] opened to sterile field. 15:21:30 Medtronic 4074-52 PPM Lead opened to sterile field. 15:21:30 Medtronic 4574-45 PPM Lead opened to sterile field. 15:21:[address] Generator [id number] opened to sterile field. 15:27:56 Patient received from Pre/Post Procedure Room to CCL 3 Alert and oriented. Tansferred to table in Supine position. 15:27:59 Signed procedure consent form obtained from patient. 15:28:00 Warm blankets applied, and joseph hugger turned on for patient comfort. 15:28:01 Correct patient and procedure confirmed by team. 15:28:02 ECG and BP/O2 sat monitors applied to patient. 15:33:20 Vital chart was started 15:40:08 Oxygen 2 l/min etCO2 Nasal cannula was administered by Magda Nash RN; used for procedure; O2 off when Bovi in use 15:40:08 0.9% NaCl 100 ml/hr I.V. was administered by Magda Nash RN; used for procedure; 15:40:25 Ancef (1Gm/50ml NS) 1 g I.V.P.B was administered by Magda Nash RN; used for procedure; 15:40:34 Ancef Irrigation (1gm/500ml NS) 1 g Topical was administered by Robert Boyce MD; used for procedure; 15:40:45 Lidocaine 1% 20ml vial x 2 added to field was administered by Robert Boyce MD; for local anesthetic; 15:42:25 Rhythm: sinus rhythm 15:42:27 Full Disclosure recording started 15:42:46 H&P Date Dictated: 03/09/2019 Within 30 days and on chart., H&P Addendum completed by physician on day of procedure. (MUST COMPLETE FOR ALL OUTPATIENTS). 15:42:48 Pre-procedure instructions explained to patient. 15:42:49 Pre-op teaching completed and patient verbalized understanding. 15:42:50 Family in patients room. 15:42:51 Patient NPO since Midnight. 15:42:52 Is the patient allergic to Iodine/contrast media? No. 15:42:56 Is patient on blood thinner?No 15:42:57 Patient diabetic? No. 15:43:00 Previous problem with sedation/anesthesia? No ? 15:43:01 Snore? Yes 15:43:02 Sleep apnea? No 15:43:03 Deviated septum? No 15:43:04 Opens mouth fully? Yes 15:43:05 Sticks out tongue? Yes 15:43:06 Airway obstruction? No ? 15:43:08 Dentures? No ? 15:43:12 Patient pain scale 0/10 ?. 15:43:18 Lab results completed and on chart. 15:43:23 Left chest area was prepped with dura-prep and draped in sterile fashion 15:43:30 Alarms reviewed by R. N. 15:43:31 Sharps counted by scrub and verified by R.N. 15:44:19 Pre sharps counted by scrub and verified by RN: Sutures: 7; Sponges: 5; Stick needles: 2; Skin needles: 2; Blade: 1; Cautery: 1 15:44:23 Grounding pad site Left thigh. 15:44:25 Grounding pad site free from injury. 15:45:53 --------ALL STOP TIME OUT------ 15:45:54 Final Timeout: patient, procedure, and site verified with staff and physician. All members of the team are in agreement. 15:45:59 Left chest site verified by team. 15:46:04 Fire Safety Assessment: A--An alcohol-based skin anteseptic being used preoperatively., C--Open oxygen or nitrous oxide is being used., D--An ESU, laser, or fiber-optic light is being used. 15:46:06 Physical assessment completed. ASA score P 2 - A patient with mild systemic disease as per Cornelio Miller MD. 15:46:10 Sedation plan: IV Moderate Sedation Medication:Versed, Fentanyl 15:46:35 Versed 2 mg I.V. was administered by Magda Nash RN; for sedation; 15:46:49 Fentanyl 50 mcg I.V. was administered by Magda Nash RN; for sedation; 15:48:28 Procedure started. 15:48:29 Lidocaine 1% was administered to left subclavicular area by Robert Boyce MD . 15:49:09 Incision made to left subclavicular area. 15:52:13 Generator pocket made/opened. 15:55:44 Left subclavian vein accessed with 7Fr Peel Away Sheath. 15:55:47 Left subclavian vein accessed with 7Fr Peel Away Sheath. 15:56:13 Ventricular lead inserted and advanced. 15:56:16 Atrial lead inserted and advanced. 15:59:42 Ventricular lead positioned. 15:59:54 Ventricular lead tested. 16:00:39 Atrial lead positioned. 16:00:42 Atrial lead tested. 16:00:43 Versed 1 mg I.V. was administered by Magda Nash RN; for sedation; 16:00:49 Fentanyl 50 mcg I.V. was administered by Magda Nash RN; for sedation; 16:05:12 Peel-a-way sheath was split and removed. 16:05:12 Peel-a-way sheath was split and removed. 16:05:21 Atrial lead attachment was completed with 2-0 ticron. 16:05:26 Ventricular lead attachment was completed with 2-0 ticron. 16:05:29 PPM Dual was attached to lead(s) and inserted into pocket. 16:05:36 Device pocket was irrigated with Ancef. 16:05:41 Generator was sutured in place with 2-0 ticron. 16:06:35 Procedure type changed to Cath procedure, Diagnostic procedure, PPM/ICD, PPM Dual Implant, Sedation Charges, Moderate Sedation up to 30 minutes 16:07:02 Subcutaneous closure was completed with 3-0 vicryl. 16:10:06 Skin closure was completed with 5-0 monocryl. 16:10:23 Parameters-- Generator: Mode: DDDR. Lower Rate: 60bpm. Upper Rate: 120bpm. 16:10:55 Parameters--Ventricular P/R Wave: 8.5mV. Current: 0mA; Threshold: 0.8V; Impedence: 1178OHMS. 16:11:05 Parameters--Atrial P/R Wave: 2.1mV. Current: 0mA; Threshold: 0.3V; Impedence: 437OHMS. 16:12:05 Lt Chest incision was dressed with Mepilex dressing. 16:12:11 Procedure ended.(Physican Out) 16:12:52 Fluoroscopy time 01.40 minutes. 16:13:00 Fluoroscopy dose: 47.12 mGy 16:13:00 Flurop Dose total: 47.12 16:13:25 Dose Area Product 601.70 mGy/cm. 16:13:35 Sharps counted by scrub and verified by R.N. 16:13:46 Post sharps counted by scrub and verified by RN: Sutures: 7; Sponges: 5; Stick needles: 2; Skin needles: 2; Blade: 1; Cautery: 1 16:13:51 Insertion/operative site no bleeding no hematoma. 16:13:52 Post Procedure Pulses reassessed and unchanged 16:14:10 Post-procedure physical assessment completed. ASA score P 2 - A patient with mild systemic disease as per Cornelio Miller MD. 16:14:13 Post procedure rhythm: paced 16:14:17 Estimated blood loss: 5 ml 16:14:18 Post procedure instruction explained to patient.Patient verbalizes understanding. 16:14:19 Patient needs reinforcement of post procedure teaching. 16:14:20 Procedure and supply charges have been captured, reviewed, submitted and are correct. 16:14:23 Procedure Complication : No complications 16:14:26 Vital chart was stopped 16:14:26 See physician's report for complete and final results. 16:14:28 Report given to PCU. 16:14:32 Patient transfered to PCU with Stretcher. 16:14:34 Procedure ended. 16:14:34 Full Disclosure recording stopped 16:14:37 End room use (Document Last) Device Usage Item Name Manufacture Quantity Catalog Hospital Part Current Minima l Lot# / Number Charge Number Stock Stock Serial# Code Cautery Tip Microtek 1 [id number] 950237 [id number] [id number] 5 Phlebotomist Medical Lab Assistant [employer] Cautery Microtek 1 [id number] 433868 35785 695930 5 Pushbutton [employer] Inc[employer] Pencil Mepilex Cardinal 1 594083 211559 768766 393382 5 Dressing Health (521700) Immobilizer Cardinal 1 [id number] 248831 831954 [id number] 5 Large Health 2-0 Ticron Ethicon 3 [id number] 408118 64322 636738 5 Multipack ([id number]) 3-0 Vicryl Ethicon 1 [id number] 999425 835151 936678 5 Single Pack [id number] 5-0 Monocryl Ethicon 1 Y495G 658641 668450 465774 5 PS2 Y495G Medtronic Medtronic 1 4074-52 712342 361270 301202 5 [id number] 4074-52 PPM EXP Lead 6-21-20 Medtronic Medtronic 1 4574-45 661541 147239 745153 5 [id number] 4574-45 PPM EXP Lead 11-15-20 Medtronic Medtronic 1 [id number] 377778 1254385 210234 [id number] EXP Generator 06-23-20 [id number] Signature Audit [place] Stage Time Signature Unsigned Intra-Procedure 03/15/2019 Ángel Bradley 4:14:49 PM RT(R) Signatures Performing Physician : Signature : Cornelio Miller MD Date : Time : Monitor : Ángel Bradley RT Signature : Date : Time : Monitor : Glenis Call Signature : RT Date : Time : Nurse : Magda Nash RN Signature : Date : Time : [address] [place] [address]
[~2019-03-15 11:02] MED LIST changes: +FUROSEMIDE40 MG PO; +SOMA350 MG PO
[2019-03-15] MEDS ORDERED: TORSEMIDE20 MG PO (11:25)
[2019-03-15] MEDS ORDERED: MEXITIL 150 MG150 MG PO (11:25)
[2019-03-15] MEDS ORDERED: BAYER CHEWABLE81 MG PO (11:26)
[2019-03-15] MEDS ORDERED: K-TAB10 MEQ PO (11:27)
[2019-03-15] MEDS ORDERED: SENNA LAXATIVE8.6 MG PO (11:27)
[2019-03-15] MEDS ORDERED: CHRONULAC30 ML PO (11:29)
[2019-03-15] MEDS ORDERED: RISPERDAL1 MG PO (11:30)
[2019-03-15] MEDS ORDERED: OXYCODONE HCL5 M1 PO (11:31)
[2019-03-15] MEDS ORDERED: MELATONIN5 MG PO (11:33)
[2019-03-15] MEDS ORDERED: TRAZODONE HCL150 MG PO (11:33)
[2019-03-15] MEDS ORDERED: FLOMAX0.4 MG PO (11:33)
[2019-03-15 11:40] VITALS: BP 124/79; BMI 21.3
[2019-03-15 12:01] LABS: HEMATOCRIT 35.1 % (42.0-54.0); HEMOGLOBIN 12.3 g/dL (13.5-17.5); MCV 91.4 fL (80.0-100.0); MEAN PLATELET VOLUME 10.7 fL (7.4-10.4); RBC 3.84 10x6/uL (4.20-6.10); WBC 6.6 10x3/uL (4.8-10.8)
[2019-03-15 12:06] LABS: ANION GAP 11.7 mmol/L (8-16); CALCIUM 8.9 mg/dL (8.5-10.1); CARBON DIOXIDE 28.5 mmol/L (21.0-32.0); CREATININE - SERUM 1.6 mg/dL (0.6-1.3); POTASSIUM - SERUM 4.2 mmol/L (3.5-5.1)
[2019-03-15 12:09] LABS: APTT 27.2 SECONDS (22.8-39.4); INR 1.04 (0.85-1.17); PROTIME 13.1 SECONDS (11.6-15.0)
--- NOTE | 2019-03-15 17:15 | NUR ---
RECEIVED PT TO ROOM 2119 AAOX4 RESP UNLABORED FRANCISCOG C/D/I/TO LT CHEST SLING TO LT ARM TELEMETRY PACED AT 93 WITH PVCs PT DENIES ANY PAIN
[2019-03-15 17:36] VITALS: Ht 180.3 cm; Wt 72.3 kg
[2019-03-15 20:00] VITALS: BP 121/56
--- NOTE | 2019-03-15 20:03 | NUR ---
RECIEVED LAYING IN BED WITH EYES OPEN AND TV ON. ALERT AND ORIENTED X4. UP WITH ASSIST D/T PROCEDURE TODAY. DSG TO LEFT CHEST CDI. SLING TO LEFT ARM. EDUCATED ON KEEPING ARM IN SLING AND NOT TO RAISE ABOVE HEAD. DENIES ANY NEEDS AT THIS TIME.
--- NOTE | 2019-03-15 22:28 | NUR ---
RESTING IN BED WITH EYES OPEN AND TV ON. DENIES ANY NEEDS AT THIS TIME.
[2019-03-16 01:05] VITALS: BP 112/67
--- NOTE | 2019-03-16 05:34 | NUR ---
UP EARLY THIS AM. WATCING TV. ALERT AND ORIENTED X4. DENIES ANY NEEDS.
[2019-03-16 05:36] VITALS: BP 134/62
--- NOTE | 2019-03-16 07:41 | NUR ---
ASSESSMENT DONE. DENIES NEEDS
[2019-03-16 08:00] VITALS: BP 123/88
--- NOTE | 2019-03-16 09:57 | NUR ---
I have reviewed this patient and I concur with the Shift Assessment completed by the Licensed Practical Nurse today this shift.
--- NOTE | 2019-03-16 10:14 | NUR ---
DC GIVEN TO PT
--- NOTE | 2019-03-16 12:46 | NUR ---
DC HOME PER PERSONAL CAR
--- NOTE | 2019-03-17 08:37 | MORECARE ---
CASE MANAGEMENT DISCHARGE SUMMARY PATIENT: CHAD BALDWIN UNIT: [id number] ADM DATE: 03/15/19 AGE: 78 : 38 SEX: M ROOM/BED: D.2120 AUTHOR: TODD MACIAS PHYSICIAN: REFERRING PHYSICIAN: KAMARI MITCHELL MD DATE OF SERVICE: 03/17/19 Discharge Plan Patient Name: CHAD BALDWIN Facility: [facility]:[place] : 1940 Planned Disposition: Home Anticipated Discharge Date: 03/16/19 Discharge Date: 03/16/2019 Expected LOS: 1 Initial Reviewer: [email or web address] Initial Review Date: 03/17/2019 Generated: 03/17/19 9:37 am Patient Name: CHAD BALDWIN Page [id number] at 0837 All edits/amendments must be made on the electronic document DICTATION DATE: 03/17/19835 FOOD AND BEVERAGE ORDER CLERK: LORRIE 03/17/1938 RPT#: [id number] DC DATE:03/16/19 STATUS: DIS IN [facility] [address] [place] [address] END OF REPORT
--- NOTE | 2019-03-17 11:36 | OP ---
PATIENT NAME: CHAD BALDWIN MEDICAL RECORD: [id number] :36 LOCATION:D.M2 D.2120 ADMISSION DATE:03/15/19 SURGEON: JAIRO ERNST MD DATE OF OPERATION: 03/15/2019 PREOPERATIVE DIAGNOSIS: Mobitz II AV block. POSTOPERATIVE DIAGNOSIS: Mobitz II AV block. PROCEDURES: 1. Dual lead left subclavian vein pacemaker placement. 2. Fluoroscopic interpretation. SURGEON: Jairo Ernst MD CO-SURGEON: Cornelio Hagen MD REPORT OF OPERATION: The patient's left chest was prepped and draped in sterile fashion. A total of 20 mL of 1% lidocaine with epinephrine was infused into the surrounding tissues. A skin incision was made on the left superolateral chest and a subcutaneous pouch was made over the pectoral fascia. [place] were used to cannulate the left subclavian vein and guidewires were advanced with ease. Fluoro was used to note that the wires were in good position in the venous system. The dilator trocar devices were placed over the wires and the wires and dilators were removed. The leads were advanced through the trocars into the superior vena cava. At this point, Dr. Hagen positioned the leads appropriately in the atrium and the ventricle. Once the leads were noted to be positioned appropriately and functioning, then the leads were sutured into place with #0 Ti-Crons. The leads were fixed to the pacemaker and the pacemaker was placed onto the subcutaneous pouch and sutured to the pectoral fascia with a single interrupted #0 Ti-Cron. We irrigated out the wound with antibiotic solution. The subcutaneous tissues were reapproximated with interrupted 3-0 Vicryl and the skin was closed with running subcutaneous 5-0 Monocryl. COMPLICATIONS: None. CONDITION: Stable. ANESTHESIA: Local MAC. BLOOD LOSS: Minimal. TRANSINT:[id number] Voice Confirmation ID: [id number] DOCUMENT ID: [id number] JAIRO ERNST MD at 1136 CC: [id number] DICTATION DATE: 03/15/19 1615 BLENDING COORDINATOR: 03/15/192021 DIS IN 03/16/19 [facility] [address] [place] [address]
--- NOTE | 2019-03-17 13:11 | OP ---
PATIENT NAME: GABE COOL MEDICAL RECORD: [id number] :36 LOCATION:D.M2 D.2120 ADMISSION DATE:03/15/19 SURGEON: KAMARI MITCHELL MD DATE OF OPERATION: 03/15/2019 PROCEDURE: Lead portion of permanent pacemaker placement. INDICATION: High-degree AV block including Mobitz II, symptomatic. SURGEON: Robert Boyce MD DESCRIPTION OF PROCEDURE: After left subclavian was cannulated via modified Seldinger technique via Dr. Boyce, first, under fluoroscopic guidance, I placed the RV lead in the RV apex without difficulty. After adequate R waves and thresholds were obtained, again under fluoroscopic guidance, I placed the right atrial lead in the right atrial appendage without difficulty. After adequate P waves and thresholds were obtained, leads were attached to the appropriate poles of the generator. Pocket was closed via Dr. Boyce. IMPRESSION: Successful lead portion of permanent pacemaker placement on Gabe Cool. ESTIMATED BLOOD LOSS: Minimal. COMPLICATIONS: None. DISPOSITION: To the floor, stable. TRANSINT:[id number] Voice Confirmation ID: [id number] DOCUMENT ID: [id number] KAMARI MITCHELL MD at 1311 CC: [id number] DICTATION DATE: 03/15/19 1610 ACCOUNT MAINTENANCE REPRESENTATIVE: 03/15/192013 DIS IN 03/16/19 [facility] [address] [place] [address]
== END 2019-03-16 12:46 | disposition home or self-care (01) ==
LOC: D.CATH 11:02 → D.M2 17:07 → D.CATH 17:08 → D.M2 17:09 → OBSVTIME 17:09 → D.M2 17:09
PROVIDERS: ADMIT Internal Medicine Interventional Cardiology; ATTEND Internal Medicine Interventional Cardiology
DX: I44.1 Atrioventricular block, second degree (principal)